=== PATIENT | female | born 1990 | race Caucasian/White ===

== ENCOUNTER → 2017-05-07 | Outpatient (CLI) | payer MEDICAID ==
[~2017-05-07] MED LIST: CIPR500T78 PO; NAPR-243 PO
--- NOTE | 2017-05-07 17:55 | Diagnostic Imaging Report ---
INDICATION: Left hip pain AP and oblique views of the left hip are obtained. No fracture or acute bony abnormality is seen. Joint spaces are unremarkable. IMPRESSION: Negative left hip. Dictated by: Dictated on workstation # [id number]
== END ==
LOC: RAD 17:22
PROVIDERS: ATTEND Nurse Practitioner Family
DX: M25.552 Pain in left hip (principal)
CPT/HCPCS: 73502

== ENCOUNTER 2020-12-20 08:10 | Emergency (ER) | payer SELFPAY ==
[~2020-12-20] VITALS: Ht 165 cm; Wt 170.0 kg
[2020-12-20 08:50] LABS: BILIRUBIN,URINE NEGATIVE (NEGATIVE); CLARITY,URINE CLOUDY; COLOR,URINE YELLOW; GLUCOSE, URINE (UA) NEGATIVE (NEGATIVE); KETONES,URINE TRACE (NEGATIVE); LEUKOCYTE ESTERASE ,URINE NEGATIVE (NEGATIVE); NITRITE,URINE NEGATIVE (NEGATIVE); PROTEIN,URINE NEGATIVE (NEGATIVE)
[2020-12-20 08:58] LABS: BACTERIA,URINE LARGE /HPF; RBC,URINE RARE /HPF; SQUAMOUS EPITHELIAL CELL,UR 25-50 /HPF; WBC,URINE RARE /HPF
[2020-12-20 09:25] LABS: BASOPHILS % (AUTO) 0 % (0-10); EOSINOPHILS # (AUTO) 0.1 10^3/uL (0.0-0.3); EOSINOPHILS % (AUTO) 1 % (0-10); HEMATOCRIT 45 % (35-52); HEMOGLOBIN 14.1 g/dL (11.5-16.0); LYMPHOCYTES # (AUTO) 2.3 10^3/uL (1.0-4.0); LYMPHOCYTES % (AUTO) 25 % (12-44); MEAN CORPUSCULAR HEMOGLOBIN 31 pg (25-34); MEAN CORPUSCULAR HGB CONC 31 g/dL (32-36); MEAN CORPUSCULAR VOLUME 100 fL (80-99); MEAN PLATELET VOLUME 10.3 fL (9.0-12.2); MONOCYTES # (AUTO) 0.5 10^3/uL (0.0-1.0); MONOCYTES % (AUTO) 5 % (0-12); NEUTROPHILS # (AUTO) 6.2 10^3/uL (1.8-7.8); NEUTROPHILS % (AUTO) 67 % (42-75); PLATELET COUNT 182 10^3/uL (130-400); WHITE BLOOD COUNT 9.2 10^3/uL (4.3-11.0)
--- NOTE | 2020-12-20 09:55 | Diagnostic Imaging Report ---
IndicATION: Left-sided pelvic pain. Patient is 10 weeks . There is a single live IUP measuring approximately 10 weeks 1 day gestation. heart rate was recorded at 176 bpm. No mark-gestational sac hemorrhage is detected. Ovaries could not be visualized. No adnexal mass or free fluid is detected. IMPRESSION: Single live IUP, 10 weeks 1 day gestational age. Estimated date of confinement sonographically is 07/17/2021. Dictated by: Dictated on workstation # [id number]
--- NOTE | 2020-12-20 10:13 | ED GU-Female ---
General Chief Complaint: Abdominal/GI Problems Stated Complaint: PELVIC PAIN- 10 WEEKS Nursing Triage Note: ARRIVED VIA AMB TO ROOM 06. STATES SHE STRTED HAVING SOME LEFT SIDED STABBING PAIN STARTING AT 0330. PT STATES SHE IS 10 WEEKS GESTATION. Source: patient Exam Limitations: no limitations History of Present Illness Date Seen by Provider: Dec 20, 2020 Time Seen by Provider: 08:20 Allergies and Home Medications Allergies Coded Allergies: sulfamethoxazole (Verified Allergy, Unknown, 12/12/07) trimethoprim (Verified Allergy, Unknown, 12/12/07) Home Medications Ciprofloxacin HCl 500 Mg Tablet, 500 MG PO BID Prescribed by: STEPHEN NUNEZ on 07/11/14 2310 Review of Systems Review of Systems Expected Date of Delivery: Jul 17, 2021 Past Mrjgqts-Uqpjhv-Bcfrhw Hx Patient Social History Smoking Status: Current Someday Smoker Substance use?: No Immunizations Up To Date Tetanus Booster (TDap): Less than 5yrs Second COVID19 Vaccination Rodrigue: July COVID19 Vaccine 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 Seasonal Allergies Seasonal Allergies: Yes Past Medical History Adenoidectomy, Section, Tonsillectomy Asthma Expected Date of Delivery: Jul 17, 2021 Reproductive Disorders: 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 oz. 154.331238ns; 62.00 BMI Method:Stated Progress/Results/Core Measures Suspected Sepsis SIRS Temperature: Pulse: 86 Respiratory Rate: 16 Laboratory Tests 12/20/20 09:17: White Blood Count 9.2 Blood Pressure 147 /96 Mean: 113 Laboratory Tests 12/20/20 09:17: Platelet Count 182 Results/Orders Lab Results Laboratory Tests Test 12/20/20 08:31 12/20/20 09:17 Range/Units Urine Color YELLOW Urine Clarity CLOUDY Urine pH 6.0 5-9 Urine Specific [place] >=1.030 1.016-1.022 Urine Protein NEGATIVE NEGATIVE Urine Glucose (UA) NEGATIVE NEGATIVE Urine Ketones TRACE H NEGATIVE Urine Nitrite NEGATIVE NEGATIVE Urine Bilirubin NEGATIVE NEGATIVE Urine Urobilinogen 0.2 < = 1.0 MG/DL Urine Leukocyte Esterase NEGATIVE NEGATIVE Urine RBC (Auto) 1+ H NEGATIVE Urine RBC RARE /HPF Urine WBC RARE /HPF Urine Squamous Epithelial Cells 25-50 H /HPF Urine Crystals NONE /LPF Urine Bacteria LARGE H /HPF Urine Casts NONE /LPF Urine Mucus NEGATIVE /LPF Urine Culture Indicated NO White Blood Count 9.2 4.3-11.0 10^3/uL Red Blood Count 4.52 3.80-5.11 10^6/uL Hemoglobin 14.1 11.5-16.0 g/dL Hematocrit 45 35-52 % Mean Corpuscular Volume 100 H 80-99 fL Mean Corpuscular Hemoglobin 31 25-34 pg Mean Corpuscular Hemoglobin Concent 31 L 32-36 g/dL Red Cell Distribution Width 12.1 10.0-14.5 % Platelet Count 182 130-400 10^3/uL Mean Platelet Volume 10.3 9.0-12.2 fL Immature Granulocyte % (Auto) 0 % Neutrophils (%) (Auto) 67 42-75 % Lymphocytes (%) (Auto) 25 12-44 % Monocytes (%) (Auto) 5 0-12 % Eosinophils (%) (Auto) 1 0-10 % Basophils (%) (Auto) 0 0-10 % Neutrophils # (Auto) 6.2 1.8-7.8 10^3/uL Lymphocytes # (Auto) 2.3 1.0-4.0 10^3/uL Monocytes # (Auto) 0.5 0.0-1.0 10^3/uL Eosinophils # (Auto) 0.1 0.0-0.3 10^3/uL Basophils # (Auto) 0.0 0.0-0.1 10^3/uL Immature Granulocyte # (Auto) 0.0 0.0-0.1 10^3/uL Human Chorionic Gonadotropin, Quant [id number] H <5 MIU/ML My Orders Orders - CLOVIS SANTIAGO MD Cbc With Automated Diff (12/20/20 08:39) Hcg,Quantitative (12/20/20 08:39) Ua Culture If Indicated (12/20/20 08:39) Urine Bedside (12/20/20 08:39) Us Ob Transvaginal [id number] (12/20/20 08:47) Vital Signs/I&O 12/20/20 08:20 Temp 36.0 Pulse 86 Resp 16 B/P (MAP) 147/96 (113) Pulse Ox 99 O2 Delivery Room Air Capillary Refill : Less Than 3 Seconds Blood Pressure Mean: 113 Departure Impression Primary Impression: Pelvic pain affecting Qualified Codes: O26.891 - Other specified related conditions, first trimester; R10.2 - Pelvic and perineal pain Disposition: 01 HOME, SELF-CARE Condition: Improved Departure-Patient Inst. Decision time for Depature: 10:11 Referrals: VERONIKA LÓPEZ MD (PCP/Family) Primary Care Physician Patient Instructions: Pelvic Pain Add. Discharge Instructions: Your work-up is unremarkable. You have a normal in the uterus at about 10 weeks gestational age. Keep your follow-up appointment on January 01. Take a vitamin and drink plenty of clear liquids. Eating small quantities of healthy food frequently throughout the day tends to help reduce nausea and vomiting. Call with questions or concerns. Return to the ER if you have worsening symptoms. All discharge instructions reviewed with patient and/or family. Voiced understanding. Copy Copies To 1: VERONIKA LÓPEZ MD, JOSHUA T MD Dec 20, 2020 10:13
[2020-12-20 10:18] VITALS: BP 147/96
== END 2020-12-20 10:17 | disposition home or self-care (01) ==
LOC: EDUNIT# 08:10 → ER 08:11
DX: O26.891 Other specified pregnancy related conditions, first trimester (principal); R10.2 Pelvic and perineal pain; O99.511 Diseases of the respiratory system complicating pregnancy, first trimester; J45.909 Unspecified asthma, uncomplicated; O99.331 Smoking (tobacco) complicating pregnancy, first trimester; F17.200 Nicotine dependence, unspecified, uncomplicated; Z3A.10 10 weeks gestation of pregnancy
CPT/HCPCS: 36415; 76817; 81000; 84702; 84703; 85025

== ENCOUNTER 2021-02-22 14:30 | Emergency (ER) | payer SELFPAY ==
[~2021-02-22] VITALS: Ht 167 cm; Wt 172.0 kg
--- NOTE | 2021-02-22 15:28 | ED Cough/URI ---
General Chief Complaint: Respiratory Problems Stated Complaint: COUGH/SOA/CONGESTION 19 WKS PREG Nursing Triage Note: PT ARRIVES AMBULATORY TO ER WITH C/O SHORTNESS OF BREATH SINCE YESTERDAY. [facility] HAS POSSIBLY BEEN AROUND SICK PEOPLE BUT NO ONE SHE KNOWS FOR SURE. PT SAID SON IS HAVING SAME SYMPTOMS AND WAS TESTED FOR COVID YESERDAY AND WAS NEGATIVE. Source: patient Exam Limitations: no limitations History of Present Illness Date Seen by Provider: Feb 22, 2021 Time Seen by Provider: 15:15 Initial Comments Patient is a 30-year-old female who presents to the emergency department today with a chief complaint of feeling shortness of breath and having upper respiratory congestion and a little cough. Patient states her symptoms started yesterday. She states that her son has sent the same symptoms and was tested for Covid and was negative yesterday. Her daughter was exposed to someone directly with Covid last week but she has not developed any symptoms. Sonia is Covid vaccinated having completed the vaccination in July of this year. She denies fevers or chills. She has had some ear fullness. No sore throat. No diarrhea, no black or bloody stools. No loss of taste or smell. No urine difficulties. No abnormal vaginal discharge. She is approximately [address] López for care. She states she has been fighting nausea and vomiting throughout the duration of her so far. She has not taken any medications to try and alleviate her congestion or shortness of breath. She states that she has a pulse ox at home and that it was reading about 89-90 91 with activity at home. Currently on room air at rest the patient is 99% with no evidence of respiratory distress/increased work of breathing. All other review of systems reviewed and negative except as stated Timing/Duration: yesterday Severity/Quality: mild, dry cough Prior Episodes/Possible Cause: illness exposure (son) Associated Symptoms: cough, shortness of breath Allergies and Home Medications Allergies Coded Allergies: sulfamethoxazole (Verified Allergy, Unknown, 12/12/07) trimethoprim (Verified Allergy, Unknown, 12/12/07) Patient Home Medication List Home Medication List Reviewed: Yes Ciprofloxacin HCl (Cipro) 500 Mg Tablet, 500 MG PO BID Prescribed by: STEPHEN NUNEZ on 07/11/14 4268 Review of Systems Review of Systems Constitutional: see HPI EENTM: ear pain (ear fullness) Respiratory: cough, dyspnea on exertion Cardiovascular: no symptoms reported Gastrointestinal: no symptoms reported Genitourinary: no symptoms reported : Yes Expected Date of Delivery: Jul 17, 2021 Musculoskeletal: no symptoms reported Skin: no symptoms reported All Other Systems Reviewed Negative Unless Noted: Yes Past Wtinalk-Xdydic-Ngzlhc Hx Patient Social History Tobacco Use?: No Substance use?: No Alcohol Use?: No Immunizations Up To Date Tetanus Booster (TDap): Less than 5yrs Influenza Vaccine Up-to-Date: No; Not Current First/Initial COVID19 Vaccinat: JUNE 2020 Second COVID19 Vaccination Rodriuge: July COVID19 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: [facility] Seasonal Allergies Seasonal Allergies: Yes Past Medical History Surgeries: Yes Adenoidectomy, Section, Ear Surgery, Tonsillectomy Respiratory: Yes Asthma Cardiac: No Neurological: No Expected Date of Delivery: Jul 17, 2021 Last Menstrual Period: Oct 24, 2020 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 oz. 154.827039um; 61.00 BMI Method:Stated General Appearance: WD/WN, no apparent distress Eyes: Bilateral Eye Normal Inspection, Bilateral Eye PERRL, Bilateral Eye EOMI HEENT: PERRL/EOMI, TMs normal, pharynx normal Respiratory: lungs clear, normal breath sounds, no respiratory distress, no accessory muscle use Cardiovascular: regular rate, rhythm Gastrointestinal: non tender, soft, other (morbid obesity) Extremities: normal range of motion, normal inspection Neurologic/Psychiatric: alert, normal mood/affect, oriented x 3 Skin: normal color, warm/dry Progress/Results/Core Measures Suspected Sepsis SIRS Temperature: Pulse: 96 Respiratory Rate: 20 Blood Pressure 156 /89 Mean: 111 Results/Orders Lab Results Laboratory Tests Test 02/22/21 15:08 Range/Units SARS-CoV-2 RNA (RT-PCR) Not Detected Not Detecte Vital Signs/I&O 02/22/21 02/22/21 14:40 16:18 Temp 36.6 36.6 Pulse 96 90 Resp 20 20 B/P (MAP) 156/89 (111) 166/100 Capillary Refill : Blood Pressure Mean: 111 Progress Note : Time: 16:08 Progress Note Patient's Covid test is negative. She is not tachycardic, not hypoxic, not tachypneic. She has even and unlabored respirations. No focal signs of infection are found. No suspicion for pulmonary embolism or other acute pathology related to the lungs. She is approximately 19 weeks , I have encouraged fluids and told her that she can take zyks-gph-dfsyhdl Robitussin and Sudafed as needed for congestion and cough. She verbalized understanding, all questions were sought and answered. Patient is stable for discharge. Departure Impression Primary Impression: Upper respiratory infection Qualified Codes: J06.9 - Acute upper respiratory infection, unspecified Additional Impression: Second trimester Disposition: 01 HOME, SELF-CARE Condition: Stable Departure-Patient Inst. Decision time for Depature: 16:07 Referrals: VERONIKA LÓPEZ MD (PCP/Family) Primary Care Physician Patient Instructions: Viral Upper Respiratory Infection, Adult (DC) Add. Discharge Instructions: Keep your scheduled follow-ups with your primary care provider. You can take tnpa-ofw-vbyhjgy Sudafed and Robitussin for congestion and cough. Make sure you are drinking plenty of fluids to stay well-hydrated. If you develop high fevers, worsening shortness of breath and cough or any other emergent concerning symptoms please do not hesitate to come back to the emergency department for reevaluation. Copy Copies To 1: VERONIKA LÓPEZ MD, KATHRYN M MD Feb 22, 2021 15:28
[2021-02-22 16:18] VITALS: BP 166/100
== END 2021-02-22 16:19 | disposition home or self-care (01) ==
LOC: EDUNIT# 14:30 → ER 14:32
DX: O99.512 Diseases of the respiratory system complicating pregnancy, second trimester (principal); J06.9 Acute upper respiratory infection, unspecified; J45.909 Unspecified asthma, uncomplicated; Z3A.19 19 weeks gestation of pregnancy; Z20.822 Contact with and (suspected) exposure to COVID-19
CPT/HCPCS: 87636; 99283

== ENCOUNTER 2021-07-04 05:33 | Outpatient (CLI) | payer MEDICAID ==
[~2021-07-04] VITALS: Ht 167 cm; Wt 172.3 kg
[2021-07-04] MEDS ORDERED: PREN1TAB79 PO (13:57)
== END 2021-07-04 14:04 ==
LOC: PREOP 05:33
PROVIDERS: ATTEND Obstetrics & Gynecology
DX: Z01.818 Encounter for other preprocedural examination (principal)

== ENCOUNTER 2021-07-11 05:54 | Inpatient (IN) | payer MEDICAID ==
[~2021-07-11] VITALS: Ht 165 cm; Wt 174.0 kg
[2021-07-11] VITALS (9 sets, daily range): BP systolic 99–140; BP diastolic 51–89
[~2021-07-11 05:54] MED LIST changes: +PREN1TAB79 PO
[2021-07-11] MEDS ORDERED: CATHETER FLUSH 10 ML SYR IV PRN (06:00)
[2021-07-11] MEDS ORDERED: ceFAZolin 2 GM IV Premixed 50 ML IV ONE (06:00)
[2021-07-11] MEDS ORDERED: METOCLOPRAMIDE INJ 10 MG/2 ML (REGLAN) IV ONE (06:00)
[2021-07-11] MEDS ORDERED: LACTATED RINGERS 1,000 ML IV PRN (06:00)
[2021-07-11] MEDS ORDERED: CITRIC ACID/SOB CIT (BICITRA) 30 ML UDC PO ONE (06:00)
[2021-07-11] MEDS ORDERED: FAMOTIDINE 20MG/2ML IV (PEPCID) IV ONE (06:00)
[2021-07-11] MEDS: LACTATED RINGERS 1,000 ML IV PRN ×3 (06:26→07:50)
[2021-07-11 06:45] LABS: BASOPHILS % (AUTO) 0 % (0-10); EOSINOPHILS # (AUTO) 0.5 10^3/uL (0.0-0.3); EOSINOPHILS % (AUTO) 3 % (0-10); HEMATOCRIT 36 % (35-52); HEMOGLOBIN 11.8 g/dL (11.5-16.0); LYMPHOCYTES # (AUTO) 2.6 10^3/uL (1.0-4.0); LYMPHOCYTES % (AUTO) 20 % (12-44); MEAN CORPUSCULAR HEMOGLOBIN 31 pg (25-34); MEAN CORPUSCULAR HGB CONC 33 g/dL (32-36); MEAN CORPUSCULAR VOLUME 94 fL (80-99); MEAN PLATELET VOLUME 9.7 fL (9.0-12.2); MONOCYTES # (AUTO) 0.6 10^3/uL (0.0-1.0); MONOCYTES % (AUTO) 5 % (0-12); NEUTROPHILS # (AUTO) 9.4 10^3/uL (1.8-7.8); NEUTROPHILS % (AUTO) 71 % (42-75); PLATELET COUNT 222 10^3/uL (130-400); WHITE BLOOD COUNT 13.3 10^3/uL (4.3-11.0)
[2021-07-11] MEDS ORDERED: fentaNYL INJ 100 MCG/2 ML AMP ONE (07:09)
[2021-07-11] MEDS ORDERED: KETAMINE 50 MG/5 ML SYRINGE ONE (07:09)
--- NOTE | 2021-07-11 07:15 | Progress Note-Pre Operative ---
Pre-Operative Progress Note H&P Reviewed The H&P was reviewed, patient examined and no changes noted. Date Seen by Provider: Jul 11, 2021 Time Seen by Provider: 07:05 Date H&P Reviewed: Jul 10, 2021 Time H&P Reviewed: 17:00 Pre-Operative Diagnosis: Previous section. ЕКАТЕРИНА ANDERS DO Jul 11, 2021 07:14
[2021-07-11] MEDS ORDERED: OXYTOCIN PRE-MIX DRIP 500 ML IV ONE ×3 (07:48→08:49)
[2021-07-11] MEDS: KETOROLAC 30 MG/ML VIAL IV SCH ×3 (07:55→20:21)
[2021-07-11] MEDS ORDERED: KETOROLAC 30 MG/ML VIAL ONE (08:13)
[2021-07-11] MEDS ORDERED: NALOXONE 0.4 MG/ML 1 ML (NARCAN) VIAL IV PRN (08:45)
[2021-07-11] MEDS ORDERED: MEASLES,MUMPS,RUBELLA 1 EA INJ SC SCH (08:45)
[2021-07-11] MEDS ORDERED: morphine INJ 4 MG/ML 1 ML (VIAL/SYRINGE) IV PRN (08:45)
[2021-07-11] MEDS ORDERED: OXYTOCIN PRE-MIX DRIP 500 ML IV SCH (08:45)
[2021-07-11] MEDS ORDERED: TETANUS,DIPTH,PERTUSS P/F (BOOSTRIX) 0.5 ML VIAL IM SCH (08:45)
--- NOTE | 2021-07-11 08:57 | Cesarean Section Operative ---
Procedure Procedure Note Pre-operative Diagnosis: Sonia Diego is a 30 /Para 3 /2 ,Gestational Age 39 1/7 with history of previous section x 2, BMI 64 Post-operative Diagnosis: same, 30 /Para 3 /2 ,Gestational Age 39 1/7 with history of previous section x 2, BMI 64, breech/transverse (unstable lie) Procedure: Repeat low transverse section, Physician: ЕКАТЕРИНА ANDERS Tube Depatcher: Harinder Breaux MD department assistant required for retraction of important neurovascular structures and abdominal wall retraction Estimated blood loss: 600 mL Disposition: stable Findings: Viable female , Apgars 8/9, weight 5#1 ounce, intact placenta, 3vc, normal appearing uterus, tubes, and ovaries. Indications:Sonia Diego is a 30 /Para 3 /2 ,Gestational Age 39 1/7 with history of previous section x 2, BMI, breech/transverse (unstable lie), Procedure Details: The patient was seen in pre-op and the procedure was discussed with the patient in full, including the risks, benefits, and alternatives. All questions were answered. The patient was taken to the operating room and a time out was p erformed, verifying patient and procedure. After spinal anesthesia was placed by our anesthesia colleagues, the patient was placed in the dorsal supine with leftward tilt for uterine displacement.~ Her abdomen was then prepped and draped in the typical sterile fashion. A Pfannenstiel skin incision was made using a scalpel and carried down through the underlying fascia through the previous incision. The fascia was incised in the midline and tented up using Kelly clamps. On both the inferior and superior fas ivelisse side the rectus muscle was dissected off bluntly and sharply using Rosas scissors. The rectus muscles were in the midline and there was preperitoneal fat protruding through. The peritoneum was never identified, as when I the muscles and retracted the preperitoneal, I was directly in the peritoneal cavity. The muscles were then stretched laterally using manual strength. After entering the abdominal cavity and confirming lack of intraperitoneal adhesions, an extra large Gage retractor was placed and the lower uterine segment was visualized. the fetus was noted to be transverse.~ A scalpel was utilized to make a low transverse uterine incision. Amniotomy was performed with an Allis clamp with return of clear fluid. The left hip/side was presenting. The infant was then rotated to complete breech and the left foot was then delivered. I then delivered the right foot and then gently delivered the infant up to the level of the scapulae. The arms were then swept across the chest and delivered. The head was then delivered with assistance of the Oqayiych-Wlvdawl-Uqax maneuver and the infant was delivered without difficulty. Mouth and nares were suctioned with bulb suction. There was a nuchal cord x 1 that was then reduced. After the umbilical cord was clamped and cut, the infant was handed off to the pediatric staff. A sample of cord blood was then obtained. The placenta was delivered intact via uterine massage. The uterus was cleared of all clots and debris. The uterine incision was closed using 0 Vicryl in a running locked fashion. A second imbricated layer was placed using 0 Vicryl in a running fashion as well. The incision was reinforced with figure of eight stitches of 3-0 Vicryl. The hysterotomy site was examined and hemostasis was observed. The bilateral tubes and ovaries appeared normal. The abdominal gutters were cleared of all clots and debris. A final check of the uterine incision showed it to be hemostatic. The peritoneum was closed using 3-0 Vicryl in a running fashion. The fascia was closed with 0 PDS in a running fashion. The subcutaneous space was hemostatic. The subcutaneous space was closed with 3-0 Plain in several single interrupted stitches. The skin was then closed using 4-0 Biosyn in a running subcuticular fashion. The skin edges were reapproximated together and were hemostatic. Skinaffix was placed over the incision. An island dressing was applied. All sponge, lap and needle counts were correct at the end of the procedure per nursing. Vitals - Labs Vital Signs - I&O Vital Signs Date Time Temp Pulse Resp B/P (MAP) Pulse Ox O2 Delivery O2 Flow Rate FiO2 07/11/21 06:47 36.4 96 18 98 Room Air Labs Laboratory Tests 07/11/21 06:37: White Blood Count 13.3H, Red Blood Count 3.87, Hemoglobin 11.8, Hematocrit 36, Mean Corpuscular Volume 94, Mean Corpuscular Hemoglobin 31, Mean Corpuscular Hemoglobin Concent 33, Red Cell Distribution Width 14.6H, Platelet Count 222, Mean Platelet Volume 9.7, Immature Granulocyte % (Auto) 1, Neutrophils (%) (Auto) 71, Lymphocytes (%) (Auto) 20, Monocytes (%) (Auto) 5, Eosinophils (%) (Auto) 3, Basophils (%) (Auto) 0, Neutrophils # (Auto) 9.4H, Lymphocytes # (Auto) 2.6, Monocytes # (Auto) 0.6, Eosinophils # (Auto) 0.5H, Basophils # (Auto) 0.0, Immature Granulocyte # (Auto) 0.1 ЕКАТЕРИНА ANDERS DO Jul 11, 2021 08:57
[2021-07-11 10:31] LABS: BILIRUBIN,URINE NEGATIVE (NEGATIVE); CLARITY,URINE CLEAR; COLOR,URINE DARK YELLOW; GLUCOSE, URINE (UA) NEGATIVE (NEGATIVE); KETONES,URINE NEGATIVE (NEGATIVE); LEUKOCYTE ESTERASE ,URINE NEGATIVE (NEGATIVE); NITRITE,URINE NEGATIVE (NEGATIVE); PROTEIN,URINE NEGATIVE (NEGATIVE)
[2021-07-11 10:47] LABS: BACTERIA,URINE TRACE /HPF
[2021-07-11] MEDS ORDERED: ACETAMINOPHEN 500 MG TAB (TYLENOL) ONE (11:00)
[2021-07-11] MEDS: DOCUSATE SODIUM 100 MG (COLACE) CAP PO SCH ×2 (11:02→20:20)
[2021-07-11] MEDS: ACETAMINOPHEN 500 MG TAB (TYLENOL) PO SCH ×2 (11:03→19:08)
[2021-07-11] MEDS ORDERED: CATHETER FLUSH 10 ML SYR IV SCH (14:00)
[2021-07-11] MEDS ORDERED: DOCU100C37 PO (19:19)
[2021-07-11] MEDS ORDERED: FERR325T24 PO (19:19)
[2021-07-11] MEDS ORDERED: IBUP-844 PO (19:19)
[2021-07-11] MEDS ORDERED: ACET-93 PO (19:19)
--- NOTE | 2021-07-11 19:22 | Discharge Inst-Women's Service ---
Discharge Inst-Women's Serv Depart Medication/Instructions New, Converted or Re-Newed RX: Transmitted to Pharmacy (24 oxycodone sent from office) Final Diagnosis 39 week gestation previous section Problems Reviewed?: Yes Consults/Follow Up Additional Follow Up: Yes Orders/Referrals abdominal binder sent to [facility] Activity Activity: Activity as Tolerated Driving Instructions: No Driving for 1 Week NO SMOKING: NO SMOKING Nothing Inside Vagina: No Douching, No [place], No Tampons Diet Discharge Diet: No Restrictions Symptoms to Report to : Bleeding Excessive, Pain Increased, Fever Over 101 Degrees F, Vaginal Bleeding Increase, Cramps in Feet or Legs, Vaginal Discharge Foul For Any Problems or Questions: Contact Your Physician Skin/Wound Care Infection Signs and Symptoms: Increased Redness, Foul Odor of Wound, Increased Drainage, Skin Itchy or Has a Rash, Increased Swelling, Temperature Above 101 F Operative Area Clean and Dry: Keep Incision Clean/Dry Stitches/[place]/Dermabond: Dermabond Bathing Instructions: ЕКАТЕРИНА Rodriguez DO Jul 11, 2021 19:22
[2021-07-12 00:05] VITALS: BP 121/53
[2021-07-12] MEDS: KETOROLAC 30 MG/ML VIAL IV SCH (02:08)
[2021-07-12] MEDS: ACETAMINOPHEN 500 MG TAB (TYLENOL) PO SCH ×2 (03:29→14:05)
[2021-07-12 04:10] VITALS: BP 126/67
[2021-07-12 05:55] LABS: BASOPHILS % (AUTO) 0 % (0-10); EOSINOPHILS # (AUTO) 0.4 10^3/uL (0.0-0.3); EOSINOPHILS % (AUTO) 3 % (0-10); HEMATOCRIT 33 % (35-52); HEMOGLOBIN 10.8 g/dL (11.5-16.0); LYMPHOCYTES # (AUTO) 2.5 10^3/uL (1.0-4.0); LYMPHOCYTES % (AUTO) 18 % (12-44); MEAN CORPUSCULAR HEMOGLOBIN 31 pg (25-34); MEAN CORPUSCULAR HGB CONC 33 g/dL (32-36); MEAN CORPUSCULAR VOLUME 93 fL (80-99); MONOCYTES # (AUTO) 0.6 10^3/uL (0.0-1.0); MONOCYTES % (AUTO) 4 % (0-12); NEUTROPHILS # (AUTO) 10.1 10^3/uL (1.8-7.8); NEUTROPHILS % (AUTO) 74 % (42-75); PLATELET COUNT 194 10^3/uL (130-400); WHITE BLOOD COUNT 13.6 10^3/uL (4.3-11.0)
[2021-07-12] MEDS ORDERED: IBUPROFEN 600 MG (MOTRIN) TAB PO ONE (08:48)
[2021-07-12] MEDS: FERROUS SULF 325 MG (IRON) TAB PO SCH ×2 (08:51→20:12)
[2021-07-12] MEDS: IBUPROFEN 600 MG (MOTRIN) TAB PO SCH ×3 (08:51→21:02)
[2021-07-12] MEDS: DOCUSATE SODIUM 100 MG (COLACE) CAP PO SCH ×2 (08:51→21:02)
[2021-07-12 08:54] VITALS: BP 118/63
--- NOTE | 2021-07-12 09:38 | Postpartum Progress Note ---
Note Note Day # [1] Subjective: Patient is without complaints. Ambulating, voiding. Tolerating a regular diet without nausea or vomiting. Normal lochia. Pain is well controlled with oral pain medications. breast feeding. [] Objective: VSS, AF Physical Exam: General - Alert and oriented, no apparent distress Abdomen - Soft, appropriately tender to palpation, non-distended, fundus firm at umbilicus Inc - c/d/i Extremities - no edema, negative Anthony's bilaterally Assessment: [] post- day # [1], status post RLTCS Recovering well, hemodynamically stable Plan: Routine and postoperative care. Encourage breast feeding. Encourage ambulation. Ferrous sulfate supplementation. Plan for discharge [POD#3] Vitals - Labs Vital Signs - I&O Vital Signs Date Time Temp Pulse Resp B/P (MAP) Pulse Ox O2 Delivery O2 Flow Rate FiO2 07/12/21 08:54 36.3 93 20 118/63 (81) Room Air 07/12/21 04:10 36.6 86 18 126/67 (86) 96 Room Air 07/12/21 00:05 36.4 77 18 121/53 (75) 96 Room Air 07/11/21 20:21 36.5 98 18 125/60 (81) 96 Room Air 07/11/21 16:34 36.3 93 20 130/67 (88) 97 Room Air 07/11/21 11:59 36.4 84 18 140/89 (106) 96 Room Air 07/11/21 09:44 Room Air 07/11/21 09:43 35.9 18 128/74 (92) 99 Room Air I & O 07/12/21 07:00 Intake Total 5095 ml Output Total 500 ml Balance 4595 ml Labs Laboratory Tests 07/12/21 05:47: White Blood Count 13.6H, Red Blood Count 3.51L, Hemoglobin 10.8L, Hematocrit 33L , Mean Corpuscular Volume 93, Mean Corpuscular Hemoglobin 31, Mean Corpuscular Hemoglobin Concent 33, Red Cell Distribution Width 14.7H, Platelet Count 194, Mean Platelet Volume 10.0, Immature Granulocyte % (Auto) 1, Neutrophils (%) (Auto) 74, Lymphocytes (%) (Auto) 18, Monocytes (%) (Auto) 4, Eosinophils (%) (Auto) 3, Basophils (%) (Auto) 0, Neutrophils # (Auto) 10.1H, Lymphocytes # (Auto) 2.5, Monocytes # (Auto) 0.6, Eosinophils # (Auto) 0.4H, Basophils # (Auto) 0.0, Immature Granulocyte # (Auto) 0.1 Microbiology 07/11/21 MRSA Screen - Final, Complete MRSA not isolated PRINCESS CUI MD Jul 12, 2021 09:38
--- NOTE | 2021-07-12 16:31 | Anesthesia-Regional Post-Op ---
Regional Patient Condition Mental Status: Alert, Oriented x3 Circulation: Same as Pre-Op Headache: Absent Sensation: Full Recovery Motor Block: Absent Post Op Complications Complications None Follow Up Care/Instructions Patient Instructions None needed. Anesthesia/Patient Condition Patient is doing well, no complaints, stable vital signs, no apparent adverse anesthesia problems. No complications reported per nursing. KENNA CHIN CRNA Jul 12, 2021 16:31
[2021-07-12 18:20] VITALS: BP 126/71
[2021-07-13 00:20] VITALS: BP 127/60
[2021-07-13] MEDS: ACETAMINOPHEN 500 MG TAB (TYLENOL) PO SCH ×4 (00:21→16:51)
[2021-07-13] MEDS: IBUPROFEN 600 MG (MOTRIN) TAB PO SCH ×4 (02:47→21:23)
[2021-07-13 06:30] VITALS: BP 124/63
[2021-07-13 08:00] VITALS: BP 129/71
[2021-07-13] MEDS: DOCUSATE SODIUM 100 MG (COLACE) CAP PO SCH ×2 (08:09→21:23)
[2021-07-13] MEDS: FERROUS SULF 325 MG (IRON) TAB PO SCH (08:09)
[2021-07-13] MEDS ORDERED: FLU QUADRIvalent (3YOA+) 60 mcg/0.5 ml 2021-22(AFLURIA) IM ONE (08:45)
--- NOTE | 2021-07-13 11:20 | Progress Note ---
Standard Progress Note Progress Notes/Assess & Plan Date Seen by a Provider: Jul 13, 2021 Time Seen by a Provider: 10:30 Progress/Assessment & Plan Subjective Patient states pain is well controlled tolerating p.o. lochia is reduced. Working on breast-feeding. Continues to desire dismissal home tomorrow. Objective vital signs are stable patient is afebrile General alert and oriented x3 in no acute distress chest nonlabored Abdomen obese nontender odor consistent with yeast with slight erythema the left lower quadrant well above the level of the incision which is clean dry and intact Extremities nontender Assessment status post repeat low transverse section postop day 2 doing well Plan #1 continue routine postop and care with support 2. Will add nystatin powder to area of concern Anticipate dismissal home tomorrow with routine follow-up in the clinic PRINCESS CUI MD Jul 13, 2021 11:20
[2021-07-13 12:43] VITALS: BP 118/67
[2021-07-13] MEDS: MICONAZOLE 2% POWDER (DESENEX AF) 90 GM TOP SCH ×2 (12:50→21:30)
[2021-07-13 16:45] VITALS: BP 132/76
[2021-07-13 21:23] VITALS: BP 134/72
[2021-07-14] MEDS: ACETAMINOPHEN 500 MG TAB (TYLENOL) PO SCH ×2 (00:58→08:26)
[2021-07-14 04:05] VITALS: BP 128/70
[2021-07-14] MEDS: IBUPROFEN 600 MG (MOTRIN) TAB PO SCH ×2 (04:05→11:39)
[2021-07-14 07:25] VITALS: BP_SYST 125; BP_SYST 131; BP_DIAS 78; BP_DIAS 85
[2021-07-14] MEDS: FERROUS SULF 325 MG (IRON) TAB PO SCH (08:26)
[2021-07-14] MEDS: DOCUSATE SODIUM 100 MG (COLACE) CAP PO SCH (08:26)
--- NOTE | 2021-07-14 08:37 | Postpartum Progress Note ---
Post Op Post-operative Day #[3] Subjective: Patient is without complaints. Ambulating, voiding after hood removed. Tolerating a regular diet without nausea or vomiting. Normal lochia. Pain is well controlled with oral pain medications. Passing flatus. [breast and supplement] feeding. [] Objective: VSS AF Gen: obese, NAD Chest: nonlabored Abd: erythema superior left incision improving, odor persists. appropriate ecchymosis. Inc: c/d/it Ext: nt Assessment: [] post-operative day # [3], status post [RLTCS]. Recovering well, hemodynamically stable Plan: Routine post-operative care. Encourage breast feeding. Encourage ambulation. VTE prophylaxis: SCDs. Ferrous sulfate supplementation. Plan for discharge today instructions to keep incision area clean/dry again reviewed Vitals - Labs Vital Signs - I&O Vital Signs Date Time Temp Pulse Resp B/P (MAP) Pulse Ox O2 Delivery O2 Flow Rate FiO2 07/14/21 07:25 36.3 54 18 131/78 (95) Room Air 07/14/21 04:05 36.6 78 18 128/70 (89) 98 Room Air 07/13/21 21:23 36.6 88 18 134/72 (92) 98 Room Air 07/13/21 16:45 36.4 94 18 132/76 (94) 98 Room Air 07/13/21 12:43 36.3 84 18 118/67 (84) 96 Room Air Labs Microbiology 07/11/21 MRSA Screen - Final, Complete MRSA not isolated PRINCESS CUI MD Jul 14, 2021 08:37
--- NOTE | 2021-07-14 08:40 | Short Stay Summary ---
Discharge Summary Hospital Course Was the Problem List Reviewed?: Yes Final Diagnosis: s/p RLTCS, obesity complicating Hospital Course Date of Admission: Jul 11, 2021 at 05:54 Admission Diagnosis : Family Physician/Provider: Luis Breaux MD Date of Discharge: 07/14/21 Discharge Diagnosis: RLTCS, obesity Hospital Course: Patient was admitted for RLTCS. Procedure and course was uncomplicated. Patient was given topical antifungal powder for yeast and ins tructions reviewed on keeping area around incision clean and dry. Labs and Pending Lab Test: Microbiology 07/11/21 MRSA Screen - Final, Complete MRSA not isolated Home Meds Active Docusate Sodium 100 Mg Capsule 100 Mg PO BID Acetaminophen 500 Mg Tablet 1,000 Mg PO Q8HR Ibu (Ibuprofen) 600 Mg Tablet 600 Mg PO Q6HR Ferosul (Ferrous Sulfate) 325 Mg Tablet 325 Mg PO DAILY@0700 Reported Vitamins ( Vit W-Ca,Fe,FA(<1 mg)) 1 Each Tablet 1 Each PO PRN Assessment/Pt Instructions dismissed to home with routine postop and intructions Discharge Instructions Discharge Diet: No Restrictions Activity as Tolerated: Yes Discharge Physical Examination General Appearance: Alert HEENT: Atraumatic Respiratory: Normal Air Movement Abdominal: Soft Skin: Other Allergies: Coded Allergies: sulfamethoxazole (Verified Allergy, Unknown, 12/12/07) trimethoprim (Verified Allergy, Unknown, 12/12/07) Discharge Summary Date of Admission Jul 11, 2021 at 05:54 Date of Discharge Discharge Date: Jul 14, 2021 PRINCESS CUI MD Jul 14, 2021 08:40
[2021-07-14] MEDS ORDERED: MICO90PO TOP (08:41)
== END 2021-07-14 12:40 | disposition home or self-care (01) | DRG 788 ==
LOC: LDRP 05:54
PROVIDERS: ADMIT Obstetrics & Gynecology; ATTEND Obstetrics & Gynecology
PROC: 10D00Z1 Extraction of Products of Conception, Low, Open Approach (ICD-10-PCS; principal; 2021-07-11 07:20)
DX: O34.211 Maternal care for low transverse scar from previous cesarean delivery (principal); O64.1XX0 Obstructed labor due to breech presentation, not applicable or unspecified; Z37.0 Single live birth; O69.81X0 Labor and delivery complicated by cord around neck, without compression, not applicable or unspecified; O99.713 Diseases of the skin and subcutaneous tissue complicating pregnancy, third trimester; B37.2 Candidiasis of skin and nail; O99.214 Obesity complicating childbirth; E66.9 Obesity, unspecified; Z3A.39 39 weeks gestation of pregnancy; Z23 Encounter for immunization
CPT/HCPCS: 36415; 81000; 85025; 86850; 86900; 86901; 87081

== ENCOUNTER → 2022-07-20 | Outpatient (CLI) | payer MEDICAID ==
[~2022-07-20] MED LIST changes: +ACET-93 PO; +DOCU100C37 PO; +FERR325T24 PO; +IBUP-844 PO; +MICO90PO TOP
--- NOTE | 2022-07-21 15:53 | Diagnostic Imaging Report ---
INDICATION: Routine care. TECHNIQUE: Multiple real-time grayscale images were obtained over the gravid uterus. COMPARISON: None FINDINGS: Study is significantly compromised due to maternal large body habitus. In particular, survey is markedly compromised with inability to accurately assess the head, spine, stomach as well as the cardiac outflow tracts. kidneys and bladder are unremarkable. There does appear to be a four-chamber heart. There appears to be a normal cord insertion. Fetus is in a variable presentation. The heart rate was recorded at 149 bpm. Placenta is posterior. Amniotic fluid volume is normal. Cervical length is 5.8 cm. Biometrical measurements are as follows: Biparietal N/A cm, age N/A weeks N/A days. Head circumference N/A cm, age N/A weeks N/A days. Abdominal circumference 14.63 cm, age 20 weeks 0 days. Femur length 3.14 cm, age 19 weeks 6 days. Sonographic estimate age: 20 weeks 0 days. Sonographic estimated date of delivery: 12/07/2022. Estimated Weight: N/A gm (+/- N/A gm). LMP percentile: N/A%. heart rate: 149 beats per minute. number: 1 of 1. IMPRESSION: Limited study due to maternal body habitus. Fetus measures approximately 20 weeks gestational age with estimated date of confinement sonographically of 12/07/2022. survey was limited. Dictated by: Dictated on workstation # [id number]
== END ==
LOC: RAD 06-29 09:13
PROVIDERS: ATTEND Nurse Practitioner Women's Health
DX: Z34.02 Encounter for supervision of normal first pregnancy, second trimester (principal); Z3A.20 20 weeks gestation of pregnancy
CPT/HCPCS: 76805

== ENCOUNTER 2022-09-09 10:31 | Emergency (ER) | payer MEDICAID ==
[~2022-09-09] VITALS: Ht 169 cm; Wt 188.0 kg
--- NOTE | 2022-09-09 10:51 | ED Respiratory ---
General Chief Complaint: Respiratory Problems Stated Complaint: SOB | CHEST CONGESTION | COUGH Nursing Triage Note: PT STATES COUGH AND CONGESTION THAT STARTED LAST NIGHT, SOB AFTER WALKING TO RM 10, 27 WEEKS Source: patient Exam Limitations: no limitations History of Present Illness Date Seen by Provider: September 09, 2022 Time Seen by Provider: 10:42 Initial Comments 31-year-old female who is 27 weeks presents to the emergency department for shortness of breath. Symptoms started last night. She has had a productive cough with minimal sputum. No chest pain. No unilateral lower extremity pain or swelling though she does have bilateral swelling with her . No calf tenderness. No history of DVT, PE. No fevers or chills. All other systems reviewed and negative except documented per HPI. Voice recognition software was used to help create this chart Allergies and Home Medications Allergies Coded Allergies: sulfamethoxazole (Verified Allergy, Unknown, 12/12/07) trimethoprim (Verified Allergy, Unknown, 12/12/07) Patient Home Medication List Home Medication List Reviewed: Yes Acetaminophen (Acetaminophen) 500 Mg Tablet, 1,000 MG PO Q8HR Prescribed by: ЕКАТЕРИНА ANDERS on 07/11/211918 Docusate Sodium (Docusate Sodium) 100 Mg Capsule, 100 MG PO BID Prescribed by: ЕКАТЕРИНА ANDERS on 07/11/211918 Ferrous Sulfate (Ferosul) 325 Mg Tablet, 325 MG PO DAILY@0700 Prescribed by: ЕКАТЕРИНА ANDERS on 07/11/211918 Ibuprofen (Ibu) 600 Mg Tablet, 600 MG PO Q6HR Prescribed by: ЕКАТЕРИНА ANDERS on 07/11/211918 Miconazole Nitrate (Lotrimin AF) 90 Gm Powder, 1 GM TOP BID PRN for RASH Prescribed by: KAUR BEATTY on 07/14/21 1108 Vit W-Ca,Fe,FA(<1 mg) ( Vitamins) 1 Each Tablet, 1 EACH PO PRN, (Reported) Entered as Reported by: EAN CANELA on 07/04/21 1357 Review of Systems Review of Systems Constitutional: see HPI Expected Date of Delivery: Dec 08, 2022 Past Hrdafnm-Jpzles-Bwiafb Hx Patient Social History Tobacco Use?: Yes Smoking Status: Current Someday Smoker Substance use?: No Alcohol Use?: No Immunizations Up To Date Tetanus Booster (TDap): Less than 5yrs First/Initial COVID19 Vaccinat: JUNE 2020 Second COVID19 Vaccination Rodrigue: July Third COVID19 Vaccination Date: JUNE 2020 Seasonal Allergies Seasonal Allergies: Yes (NO INHALER USE) Past Medical History Surgery/Hospitalization HX: ASTHMA, C SECTIOINS, TONSILS Surgeries: Yes (C/SX2) Adenoidectomy, Section, Ear Surgery, Tonsillectomy Respiratory: No Asthma Cardiac: No Neurological: No Expected Date of Delivery: Dec 08, 2022 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 Sexually Transmitted Disease: Yes (HX CHLAMYDIA, PT HAS HPV) Genitourinary: Yes Kidney Infection, UTI-Chronic Gastrointestinal: No Musculoskeletal: No Endocrine: No HEENT: No Tonsilitis Loss of Vision: Denies Hearing Impairment: Denies Cancer: No Psychosocial: Yes ADD/ADHD, Anxiety, Bipolar, Depression Integumentary: No Blood Disorders: No Adverse Reaction/Blood Tranf: No Family Medical History No Pertinent Family Hx Physical Exam Vital Signs - First Documented 09/09/22 10:41 Temp 36.8 Pulse 109 Resp 22 B/P (MAP) 153/88 (109) Pulse Ox 96 O2 Delivery Room Air Capillary Refill : Less Than 3 Seconds Height: 5'6" Weight: 340lbs. oz. 154.827323zy; 65.00 BMI Method:Stated General Appearance: WD/WN, no apparent distress HEENT: normal ENT inspection, pharynx normal Neck: non-tender, supple, normal inspection Respiratory: chest non-tender, no respiratory distress, no accessory muscle use, other (Slight expiratory wheezing bilaterally) Cardiovascular: no murmur, tachycardia Gastrointestinal: normal bowel sounds, non tender, soft Neurologic/Psychiatric: alert, oriented x 3 Skin: normal color, warm/dry Progress/Results/Core Measures Suspected Sepsis SIRS Temperature: Pulse: 109 Respiratory Rate: 22 Blood Pressure 153 /88 Mean: 109 Results/Orders My Orders Orders - FABY DA SILVA DO Chest Pa/Lat (2 View) (09/09/22 10:49) Vital Signs/I&O 09/09/22 10:41 Temp 36.8 Pulse 109 Resp 22 B/P (MAP) 153/88 (109) Pulse Ox 96 O2 Delivery Room Air Capillary Refill : Less Than 3 Seconds Blood Pressure Mean: 109 Departure Communication (Admissions) Patient is hemodynamically stable. She is not hypoxic. She is in no respiratory distress. Chest x-ray shows likely patchy infiltrates bilaterally. Treated with antibiotics given that she is . Advise close follow-up and strict return precautions. Impression Primary Impression: CAP (community acquired pneumonia) Qualified Codes: J18.9 - Pneumonia, unspecified organism Disposition: HOME, SELF-CARE Condition: Stable Departure-Patient Inst. Referrals: ORLANDO WELLS DO (PCP/Family) Primary Care Physician Patient Instructions: Pneumonia, Adult (DC) Add. Discharge Instructions: Take antibiotics as prescribed until they are gone. Increase fluids at home, rest as needed. Follow-up with your primary doctor in 5 days for reevaluation. Return to the emergency department should your symptoms change in any way concerning to you. All discharge instructions reviewed with patient and/or family. Voiced understanding. Scripts Azithromycin (Azithromycin) 500 Mg Tablet 500 MG PO DAILY for 5 Days, #6 TAB 1000 mg PO on first day, then 500mg PO daily after that Prov: FABY DA SILVA DO 09/09/22 FABY DA SILVA DO September 09, 2022 10:51
[2022-09-09] MEDS ORDERED: AZIT500T9 PO (11:55)
[2022-09-09] MEDS ORDERED: RT-ALBUINH INH (11:58)
[2022-09-09 12:00] VITALS: BP 143/75
--- NOTE | 2022-09-09 12:06 | Diagnostic Imaging Report ---
INDICATION: Shortness of breath. COMPARISON: None available. TECHNIQUE: Three radiographs of the chest dated 09/09/2022. FINDINGS: The cardiac silhouette is within normal limits in size. No significant pulmonary vascular congestion. Focal infiltrate is noted within the peripheral left midlung with associated mild left basilar interstitial opacities. No significant pleural effusion. No pneumothorax. No acute osseous abnormality. IMPRESSION: Focal opacities within the left midlung extending into the left lung base. Findings most likely relate to pneumonia. Radiographic followup 10 to 14 days after appropriate therapy is recommended for further evaluation. Mass lesion or other infiltrate is not totally excluded. Dictated by: Dictated on workstation # [id number]
== END 2022-09-09 12:05 | disposition home or self-care (01) ==
LOC: EDUNIT# 10:31 → ER 10:37
DX: O99.512 Diseases of the respiratory system complicating pregnancy, second trimester (principal); J18.9 Pneumonia, unspecified organism; O99.332 Smoking (tobacco) complicating pregnancy, second trimester; F17.200 Nicotine dependence, unspecified, uncomplicated; Z88.2 Allergy status to sulfonamides; Z88.0 Allergy status to penicillin; Z3A.27 27 weeks gestation of pregnancy
CPT/HCPCS: 71046

== ENCOUNTER → 2022-10-05 | Outpatient (CLI) | payer MEDICAID ==
[~2022-10-05] MED LIST changes: +AZIT500T9 PO; +RT-ALBUINH INH
== END ==
LOC: LABNPT 15:35
PROVIDERS: ATTEND Nurse Practitioner Women's Health
DX: O13.9 Gestational [pregnancy-induced] hypertension without significant proteinuria, unspecified trimester (principal); Z3A.00 Weeks of gestation of pregnancy not specified
CPT/HCPCS: 82570; 84156

== ENCOUNTER → 2022-11-03 | Outpatient (CLI) | payer MEDICAID | LOC: LABNPT 16:20 | PROVIDERS: ATTEND Nurse Practitioner Women's Health | DX: O13.9 Gestational [pregnancy-induced] hypertension without significant proteinuria, unspecified trimester (principal); Z3A.00 Weeks of gestation of pregnancy not specified | CPT/HCPCS: 82570; 84156 ==

== ENCOUNTER 2022-11-10 05:30 | Outpatient (CLI) | payer MEDICAID ==
[~2022-11-10] VITALS: Ht 167.7 cm; Wt 186.4 kg
[2022-11-10] MEDS ORDERED: LABE200T10 PO (09:31)
[2022-11-10] MEDS ORDERED: FAMO40TA72 PO (09:32)
== END 2022-11-10 09:55 ==
LOC: PREOP 05:30
PROVIDERS: ATTEND Obstetrics & Gynecology
DX: Z01.818 Encounter for other preprocedural examination (principal)

== ENCOUNTER 2022-11-17 05:29 | Inpatient (IN) | payer MEDICAID ==
[~2022-11-17] VITALS: Ht 167.6 cm; Wt 185.0 kg
[2022-11-17] VITALS (11 sets, daily range): BP systolic 111–130; BP diastolic 57–76
[~2022-11-17 05:29] MED LIST changes: +FAMO40TA72 PO; +LABE200T10 PO
--- OUTSIDE RECORDS SUMMARY | 2022-11-17 05:33 | XMS REPORT ---
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 confirmed 834 28847 Problem Sore throat J02.9 confirmed 12586175 3 Problem Dysuria R30.0 confirmed 45671010 Problem follow-up Z39.2 confirmed 507589197 Problem Irregular menses N92.6 confirmed 386 111789 Problem care in third trimester Z34.93 conf irmed 941754554 Problem Dysthymic disorder F34.1 confirmed 7 6725189 Problem Non-seasonal allergic rhinitis due to pollen J30.1 confirmed 88481473 Problem Body mass index (BMI) of 50-59.9 in adult Z68.43 confirmed 806175908 Problem Morbid (severe) obesity due to excess calories E66.01 confirmed 315200353 ALLERGIES Allergen (clinical drug ingredient) Drug/Non Drug Allergy do cumented on EMR Reaction Allergy Type Onset Date Status Substance with sulfonamide structure and antibacterial mechanism of action (substance) Sulfa Antibiotics hives Drug Allergy Active ENCOUNTERS from 1988 to 2022-11-12 Encounter Location Date Provider Diagnosis [facility] [address] [facility] [id number] [place], [place] [id number] Nov, KASHMIR SPENCER Cough R05 IMMUNIZATIONS Vaccine Route Administration Date Status FLUARIX QUAD (3 AND UP) 2016 IM Intramuscular May 21, 2017 Ad ministered PRIVATE FLULAVAL QUAD 0.5ML (6 MO AND UP) 2018 IM Intramuscular Feb 04, 2018 Administered PRIVATE FLU 22-23 (FLULAVAL) AGE 6MO AND UP IM Intramuscular Feb 11, 2022 Administered 1st Booster MODERNA Bivalent, COVID-19, 0.5mL IM Intramuscular O ct 2021 Administered COVID-19 Moderna (history) Unknown August 16, 2020 Admin istered COVID-19 Moderna (history) Unknown July 18, 2020 Admin istered PRIVATE TDAP (BOOSTRIX) IM Intramuscular May 28, 2021 Adminis tered SOCIAL HISTORY Sex Assigned At : Social History Observation Description Sex Assigned At Unknown Alcohol Screen (Audit-C) Question Answer Notes Did you have a drink containing alcohol in the past year? Ye s Points 2 Interpretation Negative How often did you have 6 or more drinks on one occasio n in the past year? Less than monthly (1 point) How many drinks did you have on a typica l day when you were drinking in the past year? 1 or 2 (0 points) How often did you have a drink containing alcohol in t he past year? Monthly or less (1 point) Cessation Question Answer Notes Date Tobacco Cessation Provided: 02/27/2019 Sexual History Question Answer Notes Had sex in the past 12 months (vaginal, oral, or anal)? Yes Have you ever had a Sexually transmitted disease? Yes Prevention strategies discussed: Other with Men only Use protection? Yes Other? No Syphilis? No Herpes? No GC? No Chlamydia? Yes How often? Most of the time PHQ2 Question Answer Notes In the last 2 weeks, how often have you had little interest or pleasure in doing things? Not at all In the last 2 weeks, how often have you been feeling down, depressed, or hopeless? Not at all Total PHQ2 Score 0 Tobacco use other than smoking: Question Answer Notes Are you an other tobacco user? 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) HISTORY Type Description Date Medical History seasonal allergies Medical History Anxiety disorder Medical History depression Medical History hyperinsulinemia Medical History dyslipidemia Surgical History section x 3 Surgical History Tonsillectomy & adenoidectomy Surgical History myringotomy with ventilating tube Hospitalization History Surgery(s)/Childbirth(s) only Goals Section No Information Health Concerns No Information MEDICAL EQUIPMENT No Information MENTAL STATUS No Information FUNCTIONAL STATUS No Information ASSESSMENTS Encounter Date Diagnosis Assessment Notes Treatment Notes Treatm ent Clinical Notes Nov, Cough (ICD-10 - R05) PLAN OF TREATMENT Medication Medication Name Sig Start Date Stop Date Erythromycin 2 % 1 cm application to both eye s Externally 4 times a day for 7 days Sep, Insurance Providers Payer Name Payer Address Payer Phone Insured Name Patient Relati onship to Insured Coverage Start Date Coverage End Date Subscriber Number Group [place] spain [employer] [address] [facility] [phone] Sonia [place] Self - patient is the insured [id number] COVID19 HRSA Uninsured T [employer] Fund [facility] A ttention CARES Act Provider Relief Fund [address] [address] [facility] [phone] Sonia [place] Self - patient is the insured 2019 2019 [id number] MEDICATIONS ADMINISTERED Medication Instructions Date of Administration Dosage DEPO PROVERA (150 MG/ML) Jan, 150 mg DEPO PROVERA (150 MG/ML) Oct, 150 mg DEPO PROVERA (150 MG/ML) Jul, 150 mg DEPO PROVERA (150 MG/ML) Apr, 150 mg DEPO PROVERA (150 MG/ML) Nov, 150 mg DEPO PROVERA (150 MG/ML) August, 150 mg DEPO PROVERA (150 MG/ML) Apr, 150 mg DEPO PROVERA (150 MG/ML) Jul, 150 mg
--- OUTSIDE RECORDS SUMMARY | 2022-11-17 05:33 | XMS REPORT ---
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 confirmed 834 44201 Problem Sore throat J02.9 confirmed 38808771 3 Problem Dysuria R30.0 confirmed 22266251 Problem follow-up Z39.2 confirmed 469319558 Problem Irregular menses N92.6 confirmed 386 072420 Problem care in third trimester Z34.93 conf irmed 414479489 Problem Dysthymic disorder F34.1 confirmed 7 5353986 Problem Non-seasonal allergic rhinitis due to pollen J30.1 confirmed 70119009 Problem Body mass index (BMI) of 50-59.9 in adult Z68.43 confirmed 447388402 Problem Morbid (severe) obesity due to excess calories E66.01 confirmed 114843718 ALLERGIES Allergen (clinical drug ingredient) Drug/Non Drug Allergy do cumented on EMR Reaction Allergy Type Onset Date Status Substance with sulfonamide structure and antibacterial mechanism of action (substance) Sulfa Antibiotics hives Drug Allergy Active ENCOUNTERS from 1988 to 2022-10-19 Encounter Location Date Provider Diagnosis [facility] [address] [facility] [id number] [place] [address] Oct, KASHMIR SPENCER Encounter for pregna ncy test, result unknown Z32.00 IMMUNIZATIONS Vaccine Route Administration Date Status 1st Booster MODERNA Bivalent, COVID-19, 0.5mL IM Intramuscular O ct 2021 Administered PRIVATE FLU 22-23 (FLULAVAL) AGE 6MO AND UP IM Intramuscular Feb 11, 2022 Administered COVID-19 Moderna (history) Unknown August 16, 2020 Admin istered COVID-19 Moderna (history) Unknown July 18, 2020 Admin istered PRIVATE FLULAVAL QUAD 0.5ML (6 MO AND UP) 2018 IM Intramuscular Feb 04, 2018 Administered FLUARIX QUAD (3 AND UP) 2016 IM Intramuscular May 21, 2017 Ad ministered PRIVATE TDAP (BOOSTRIX) IM Intramuscular May 28, [...] Information RESULTS No Results REASON FOR VISIT test (walk-in) MEDICAL (GENERAL) HISTORY Type Description Date Medical History [...] Notes Treatment Notes Treatm ent Clinical Notes Oct, Encounter for test, result unk nown (ICD-10 - Z32.00) PLAN OF TREATMENT Medication Medication Name Sig Start Date Stop Date Erythromycin 2 % 1 cm application to both eye s Externally 4 times a day for 7 days Sep, Insurance Providers Payer Name Payer Address Payer Phone Insured Name Patient Relati onship to Insured Coverage Start Date Coverage End Date Subscriber Number Group Nu mber [employer] [address] [facility] [phone] Sonia [place] Self - patient is the insured [id number] COVID19 HRSA Uninsured [employer] Fund [facility] Group A ttention CARES Act Provider Relief Fund [address] [address] [facility] [phone] Sonia [place] Self - patient is the insured 2019 2019 [id number] MEDICATIONS ADMINISTERED Medication Instructions Date of Administration Dosage DEPO PROVERA (150 MG/ML) Apr, 150 mg DEPO PROVERA (150 MG/ML) Jul, 150 mg DEPO PROVERA (150 MG/ML) Oct, 150 mg DEPO PROVERA (150 MG/ML) Jan, 150 mg DEPO PROVERA (150 MG/ML) Apr, 150 mg DEPO PROVERA (150 MG/ML) Jul, 150 mg DEPO PROVERA (150 MG/ML) Nov, 150 mg DEPO PROVERA (150 MG/ML) August, 150 mg
[2022-11-17] MEDS ORDERED: metroNIDAZOLE 500MG/100ML IVPB 100 ML IV ONE (05:45)
[2022-11-17] MEDS ORDERED: ceFAZolin INJECTION 2,000 MG in NS (IVPB) 50 ML 50 ML IV ONE (05:45)
[2022-11-17] MEDS ORDERED: CATHETER FLUSH 10 ML SYR IV PRN (06:00)
[2022-11-17] MEDS ORDERED: LACTATED RINGERS 1,000 ML IV PRN ×2 (06:00)
[2022-11-17] MEDS ORDERED: FAMOTIDINE 20MG/2ML IV (PEPCID) IV ONE (06:00)
[2022-11-17] MEDS ORDERED: METOCLOPRAMIDE INJ 10 MG/2 ML (REGLAN) IV ONE (06:00)
[2022-11-17] MEDS ORDERED: CITRIC ACID/SODIUM CITRATE ORAL SOLN 30 ML PO ONE (06:00)
[2022-11-17 06:39] LABS: BASOPHILS % (AUTO) 0 % (0-10); EOSINOPHILS # (AUTO) 0.1 10^3/uL (0.0-0.3); EOSINOPHILS % (AUTO) 1 % (0-10); HEMATOCRIT 39 % (35-52); HEMOGLOBIN 12.9 g/dL (11.5-16.0); LYMPHOCYTES # (AUTO) 2.2 10^3/uL (1.0-4.0); LYMPHOCYTES % (AUTO) 20 % (12-44); MEAN CORPUSCULAR HEMOGLOBIN 28 pg (25-34); MEAN CORPUSCULAR HGB CONC 33 g/dL (32-36); MEAN CORPUSCULAR VOLUME 86 fL (80-99); MEAN PLATELET VOLUME 11.1 fL (9.0-12.2); MONOCYTES # (AUTO) 0.5 10^3/uL (0.0-1.0); MONOCYTES % (AUTO) 5 % (0-12); NEUTROPHILS # (AUTO) 8.4 10^3/uL (1.8-7.8); NEUTROPHILS % (AUTO) 74 % (42-75); PLATELET COUNT 232 10^3/uL (130-400); WHITE BLOOD COUNT 11.4 10^3/uL (4.3-11.0)
[2022-11-17] MEDS ORDERED: fentaNYL INJ 100 MCG/2 ML AMP ONE (07:03)
[2022-11-17] MEDS ORDERED: OXYTOCIN PRE-MIX DRIP 1,000 ML IV ONE (07:03)
--- NOTE | 2022-11-17 07:17 | History & Physical-OB ---
OB - Chief Complaint & HPI Date/Time Date of Admission: Date of Admission: Nov 17, 2022 at 05:29 Time Seen by a Provider: 07:00 Chief Complaint/History OB-Reason for Admission/Chief: Section Hx : 4 Hx Para: 3 Expected Date of Delivery: Nov 08, 2023 Gestational Age in Weeks: 37 Gestational Age in Days: 0 Indication for : desires repeat Other reason for admission: This 31-year-old presents to labor and delivery at 37 weeks EGA for repeat low-transverse section. This is significant for PIH, morbid obesity and 2 previous sections. Admission Nurse Assessment Rev: Yes Other A+ GBS neg RI Hep B/C neg HIV neg Allergies and Home Medications Allergies Coded Allergies: sulfamethoxazole (Verified Allergy, Unknown, 11/10/22) trimethoprim (Verified Allergy, Unknown, 11/10/22) Uncoded Allergies: SUBSTANCE WITH SULFONAMIDE STRUCTUR (Allergy, Unknown, hives, 11/17/22) Patient Home Medication List Home Medication List Reviewed: Yes Acetaminophen (Acetaminophen) 500 Mg Tablet, 1,000 MG PO Q8HR Prescribed by: ЕКАТЕРИНА ANDERS on 07/11/211918 Last Action: Reviewed Famotidine (Pepcid) 40 Mg Tablet, 40 MG PO DAILY, (Reported) Entered as Reported by: Ean Petersen on 11/10/22 0932 Last Action: Reviewed Labetalol HCl (Labetalol HCl) 200 Mg Tablet, 200 MG PO BID, (Reported) Entered as Reported by: Ean Petersen on 11/10/22 0931 Last Action: Reviewed Vit W-Ca,Fe,FA(<1 mg) ( Vitamins) 1 Each Tablet, 1 EACH PO PRN, (Reported) Entered as Reported by: EAN CANELA on 07/04/21 1357 Last Action: Reviewed Discontinued Medications Albuterol Sulfate (Ventolin Hfa) 1 Puff Puff, 2 PUFF INH Q4H Discontinued Reason: No Longer Taking Prescribed by: FABY DA SILVA MD on 09/09/22 1158 Azithromycin (Azithromycin) 500 Mg Tablet, 500 MG PO DAILY Discontinued Reason: No Longer Taking Prescribed by: FABY DA SILVA MD on 09/09/22 1155 Docusate Sodium (Docusate Sodium) 100 Mg Capsule, 100 MG PO BID Discontinued Reason: No Longer Taking Prescribed by: ЕКАТЕРИНА ANDERS on 07/11/211918 Ferrous Sulfate (Ferosul) 325 Mg Tablet, 325 MG PO DAILY@0700 Discontinued Reason: No Longer Taking Prescribed by: ЕКАТЕРИНА ANDERS on 07/11/211918 Ibuprofen (Ibu) 600 Mg Tablet, 600 MG PO Q6HR Discontinued Reason: No Longer Taking Prescribed by: ЕКАТЕРИНА ANDERS on 07/11/211918 Miconazole Nitrate (Lotrimin AF) 90 Gm Powder, 1 GM TOP BID PRN for RASH Discontinued Reason: No Longer Taking Prescribed by: KAUR BEATTY on 07/14/21 1108 Last Action: Discontinued OB - History Hx of Present Care: Yes Ultrasounds: Normal mid trimester US Obstetrical Complications: Gestational Hypertension Medical Complications: Other (morbid obesity ) Information Induced Hypertension: Yes Maternal Gestational Diabetes: No Hemorrhage: No Obstetrical History Hx : 4 Hx Para: 3 Hx # Term Pregnancies: 3 Number of Living Children: 3 Hx Termination: No Hx Multiple Gestation: No Hx Stillbirth: No Hx Complication: No Hx Induced Hypertens: No Hx Maternal Gestational Diabet: No Delivery History Hx Dystocia: Yes Hx Large For Gestational Age I: No Hx Small for Gestational Age I: No Hx Section: Yes (x3) Hx Vaginal Delivery Post C-Sec: No Hx Blood Disorders: No Adverse Rxn to Tranfusion: No Patient Past Medical History HTN Social History/Family History Alcohol Use: Denies Use Smoking Cessation: Never smoker 2nd Hand Smoke Exposure: Yes Immunizations Influenza Vaccine Up-to-Date: Yes; Up-to-Date First/Initial COVID19 Vaccine: JUNE 2020 Second COVID19 Vaccination: JULY 26 Third COVID19 Vaccination Date: JUNE 2021 Hepatitis A: Yes Hepatitis B: Yes Tetanus Booster (TDap): Unknown OB - Admission Exam Physical Exam HEENT: NCAT Heart: Rhythm Normal Lungs: Clear Abdomen: Gravid Extremities: Normal Cervical Dilatation: None Heart Rate: 130's Accelerations: Accelerations Present Decelerations: No Decelerations Short Term Variability: Present Sports Complex Attendant Variability: Average (6-25) Contractions on Admission: None Labs Laboratory Tests Test 11/17/22 06:20 Range/Units White Blood Count 11.4 H 4.3-11.0 10^3/uL Red Blood Count 4.55 3.80-5.11 10^6/uL Hemoglobin 12.9 11.5-16.0 g/dL Hematocrit 39 35-52 % Mean Corpuscular Volume 86 80-99 fL Mean Corpuscular Hemoglobin 28 25-34 pg Mean Corpuscular Hemoglobin Concent 33 32-36 g/dL Red Cell Distribution Width 14.6 H 10.0-14.5 % Platelet Count 232 130-400 10^3/uL Mean Platelet Volume 11.1 9.0-12.2 fL Immature Granulocyte % (Auto) 1 % Neutrophils (%) (Auto) 74 42-75 % Lymphocytes (%) (Auto) 20 12-44 % Monocytes (%) (Auto) 5 0-12 % Eosinophils (%) (Auto) 1 0-10 % Basophils (%) (Auto) 0 0-10 % Neutrophils # (Auto) 8.4 H 1.8-7.8 10^3/uL Lymphocytes # (Auto) 2.2 1.0-4.0 10^3/uL Monocytes # (Auto) 0.5 0.0-1.0 10^3/uL Eosinophils # (Auto) 0.1 0.0-0.3 10^3/uL Basophils # (Auto) 0.0 0.0-0.1 10^3/uL Immature Granulocyte # (Auto) 0.1 0.0-0.1 10^3/uL Syphilis Total Antibody Negative Negative OB - Assessment/Plan/Diagnosis Assessment Assessment: section Admission Dx IUP at 37 weeks PIH morbid obesity Admission Status: Inpatient Order (span 2 midnights) Reason for Inpatient Admission: IUP @ 37 PIH Morbid obesity repeat LTCS Plan Plan: Section Copy Copies To 1: ORLANDO WELLS VICTORIA A DO Nov 17, 2022 07:17
[2022-11-17] MEDS ORDERED: PHENYLEPHRINE 100 MCG/ML 10 ML (ANESTHESIA) SYR ONE (08:12)
--- NOTE | 2022-11-17 09:23 | Cesarean Section Operative ---
Procedure Procedure Note Pre-operative Diagnosis: Sonia sadler a (31 /Para 4 / 3, Gestational Age (wks)37 with PIH previous LTCSx3 Post-operative Diagnosis: same + adhesions and liveborn female Procedure: [] low transverse section Physician: XENA CAMERON Vac Press Operator: Urszula Farrar RN, RAKAN GonzálesS Estimated blood loss: 500 mL Disposition: Stable to PACU counts correct x3 Findings: Liveborn female infant, Apgars8/8, weight 6 pounds 2 ounces, intact plac enta, 3vc, normal appearing uterus, tubes, and ovaries. Indications:Sonia sotelo (31 /Para 4 / 3,Gestational Age (wks)37 presenting for Repeat low-transverse section history of PIH with this . Procedure Details: The patient was seen in pre-op and the procedure was discussed with the patient in full, including the risks, benefits, and alternatives. All questions were answered. The patient was taken to the operating room and a time out was performed, verifying patient and procedure. After spinal anesthesia was placed by our anesthesia colleagues, the patient was placed in the dorsal supine with leftward tilt for uterine displacement.~ Her abdomen was then taped to expose the lower aspect of the abdomen and lift up the pannus, prepped and draped in the typical sterile fashion.Anesthesia was confirmed using an Allis clamp.A Pfannenstiel skin incision was made using a scalpel and carried down using a bovie cautery through to the underlying fascia. There was a significant amount of scar tissue. The fascia was nicked and we were into the abdominal cavity with small bowel extruding into the incision. The bowel was inspected carefully and confirmed that there was no injury. We continued to extend the fascia with the bovie taking particular care to protect the bowel underneath. The tissue was then stretched laterally and confirming lack of intraperitoneal adhesions, a large Gage retractor was placed and the lower uterine segment was visualized. The bowel was still protruding so two wet laps were inserted to retract the bowel and both were tagged to the drape. A scalpel was utilized to make a low transverse uterine incision and extended using bandage scissors. An amniotomy was performed with an Allis clamp with return of clear fluid. The infant's head was deep in the pelvis and was grasped and brought up to as close to the incision as we could get. Then using a blade of a Johnson forcep the head was brought to the incision opening. The second blade was placed on the head and with Fundal pressure the head was attempted to be delivered, but the incision was too tight so it was extended on the left. Gentle traction on the forcep was applied with fundal pressure from my resident care assistant and was delivered without further difficulty. Mouth and nares were suctioned with bulb suction. After 60 seconds the umbilical cord was clamped and cut, the was handed off to the pediatric staff. A sample of cord blood was then obtained. The placenta was delivered intact via uterine massage. The uterus was left inside the abdomen and cleared of all clots and debris. Two Allis clamps were used to grasp the corners of the uterine incision. The incisions was closed using 0 Vicryl in a running locked fashion. A second imbricated layer was placed using 0 Vicryl in a running fashion was placed for excellent hemostasis as well. Again the hysterotomy site was examined and hemostasis was observed. The bilateral tubes and ovaries appeared normal. A final check of the uterine incision showed it to be hemostatic. The peritoneum, muscle and fascia were closed with looped PDS x2 in a running fashion starting from lateral to medial with each suture being tied off in midline. The subcutaneous space was closed with 2-0 Vicryl with a running stitch. The skin was then closed using samuel. A pressure dressing was applied and Wound care will be placing a wound vac later today. All sponge, lap and needle counts were correct at the end of the procedure per nursing. Vitals - Labs Vital Signs - I&O Vital Signs Date Time Temp Pulse Resp B/P (MAP) Pulse Ox O2 Delivery O2 Flow Rate FiO2 11/17/22 07:00 36.0 74 18 99 Room Air Labs Laboratory Tests 11/17/22 06:20: White Blood Count 11.4H, Red Blood Count 4.55, Hemoglobin 12.9, Hematocrit 39, Mean Corpuscular Volume 86, Mean Corpuscular Hemoglobin 28, Mean Corpuscular Hemoglobin Concent 33, Red Cell Distribution Width 14.6H, Platelet Count 232, Mean Platelet Volume 11.1, Immature Granulocyte % (Auto) 1, Neutrophils (%) (Auto) 74, Lymphocytes (%) (Auto) 20, Monocytes (%) (Auto) 5, Eosinophils (%) (Auto) 1, Basophils (%) (Auto) 0, Neutrophils # (Auto) 8.4H, Lymphocytes # (Auto) 2.2, Monocytes # (Auto) 0.5, Eosinophils # (Auto) 0.1, Basophils # (Auto) 0.0, Immature Granulocyte # (Auto) 0.1, Syphilis Total Antibody Negative XENA CAMERON DO Nov 17, 2022 09:23
[2022-11-17] MEDS ORDERED: OXYTOCIN PRE-MIX DRIP 500 ML IV SCH (09:30)
[2022-11-17] MEDS ORDERED: NALOXONE 0.4 MG/ML 1 ML (NARCAN) VIAL IV PRN (09:30)
[2022-11-17] MEDS ORDERED: HYDROcodone/APAP 7.5 MG/325 MG (LORTAB, LORCET PLUS) TABLET PO PRN (09:30)
[2022-11-17] MEDS ORDERED: MEASLES,MUMPS,RUBELLA 1 EA INJ SC SCH (09:30)
[2022-11-17] MEDS ORDERED: TETANUS,DIPTH,PERTUSS P/F (BOOSTRIX) 0.5 ML VIAL IM SCH (09:30)
[2022-11-17] MEDS ORDERED: BISACODYL 10 MG SUPPOSITORY PR PRN (09:30)
[2022-11-17] MEDS ORDERED: morphine INJ 4 MG/ML 1 ML (VIAL/SYRINGE) IV PRN (09:30)
[2022-11-17] MEDS ORDERED: ONDANSETRON 4 MG/2 ML (SDV) Z0FRAN IVP PRN (09:30)
[2022-11-17] MEDS: KETOROLAC 30 MG/ML VIAL IV SCH ×3 (10:14→22:29)
[2022-11-17] MEDS: METOCLOPRAMIDE 10 MG (REGLAN) TAB PO SCH ×2 (12:19→18:14)
--- NOTE | 2022-11-17 15:16 | Wound Care Assessment ---
Wound Care Assessment Date Seen by Provider: Nov 17, 2022 Time Seen by Provider: 15:11 Chief Complaint Morbid obesity post-C section (repeat) HPI This pleasant 31 year old patient presented for repeat scheduled today. She is massively obese with large pannus and is high risk for surgical dehiscence. She is not a smoker, nor is she diabetic. I was consulted for consideration of incisional wound vac therapy (Prevena) to improve granulation and hasten wound healing for prevention of dihescence and infection. I do think Sonia is a great candidate for this and we will move forward at this time. Smoking Status: Former Smoker Recreational Drug Use: No Alcohol Use: Denies Use Review of Systems General: Other (Obesity) Exam Vital Signs Date Time Temp Pulse Resp B/P (MAP) Pulse Ox O2 Delivery O2 Flow Rate FiO2 11/17/22 12:20 36.3 72 18 117/63 (81) 99 Room Air Capillary Refill : Less Than 3 SecondsLess Than 3 Seconds General Appearance: no apparent distress, obese HEENT: other (normal hearing) Neck: full range of motion Cardiovascular: no edema Respiratory: no respiratory distress, no accessory muscle use Extremities: normal range of motion Neurologic/Psychiatric: alert, normal mood/affect, oriented x 3 Skin Problem Location: torso Skin Character: drainage, linear 17 cm horizontal incision with samuel intact. Sanguinous drainage noted on exam. Results Laboratory Tests 11/17/22 06:20: White Blood Count 11.4H, Red Blood Count 4.55, Hemoglobin 12.9, Hematocrit 39, Mean Corpuscular Volume 86, Mean Corpuscular Hemoglobin 28, Mean Corpuscular Hemoglobin Concent 33, Red Cell Distribution Width 14.6H, Platelet Count 232, Mean Platelet Volume 11.1, Immature Granulocyte % (Auto) 1, Neutrophils (%) (Auto) 74, Lymphocytes (%) (Auto) 20, Monocytes (%) (Auto) 5, Eosinophils (%) (Auto) 1, Basophils (%) (Auto) 0, Neutrophils # (Auto) 8.4H, Lymphocytes # (Auto) 2.2, Monocytes # (Auto) 0.5, Eosinophils # (Auto) 0.1, Basophils # (Auto) 0.0, Immature Granulocyte # (Auto) 0.1, Syphilis Total Antibody Negative Assessment/Plan/Dx Assessment: 1. Repeat in morbidly obese patient Plan: 1. Prevena wound vac for placement in hospital. RN will provide counseling upon d/c home with plan for follow up at post-surgical visit. We will monitor while she is admitted. 2. F/U as outpatient should this plan fail and dehiscence develop WILLIAMS DAMON MD Nov 17, 2022 15:16
[2022-11-17] MEDS: CATHETER FLUSH 10 ML SYR IV SCH (15:47)
[2022-11-17] MEDS ORDERED: NS IV 500 ML 500 ML ONE (18:28)
[2022-11-17] MEDS ORDERED: NS IV 500 ML 500 ML IV ONE (20:00)
[2022-11-17] MEDS: HYDROcodone/APAP 7.5 MG/325 MG (LORTAB, LORCET PLUS) TABLET PO PRN (21:21)
[2022-11-17] MEDS: DOCUSATE SODIUM 100 MG CAPSULE PO SCH (21:21)
[2022-11-18] MEDS: METOCLOPRAMIDE 10 MG (REGLAN) TAB PO SCH ×4 (00:15→18:11)
[2022-11-18 04:35] VITALS: BP 115/55
[2022-11-18] MEDS: KETOROLAC 30 MG/ML VIAL IV SCH (04:38)
[2022-11-18] MEDS ORDERED: MILK OF MAGNESIA 400 MG/5 ML 30 ML UDC PO PRN (05:00)
[2022-11-18 06:36] LABS: BASOPHILS % (AUTO) 0 % (0-10); EOSINOPHILS # (AUTO) 0.2 10^3/uL (0.0-0.3); EOSINOPHILS % (AUTO) 2 % (0-10); HEMATOCRIT 34 % (35-52); HEMOGLOBIN 11.1 g/dL (11.5-16.0); LYMPHOCYTES % (AUTO) 18 % (12-44); MEAN CORPUSCULAR HEMOGLOBIN 29 pg (25-34); MEAN CORPUSCULAR HGB CONC 33 g/dL (32-36); MEAN CORPUSCULAR VOLUME 88 fL (80-99); MEAN PLATELET VOLUME 10.6 fL (9.0-12.2); MONOCYTES # (AUTO) 0.6 10^3/uL (0.0-1.0); MONOCYTES % (AUTO) 5 % (0-12); NEUTROPHILS # (AUTO) 8.7 10^3/uL (1.8-7.8); NEUTROPHILS % (AUTO) 75 % (42-75); PLATELET COUNT 180 10^3/uL (130-400); WHITE BLOOD COUNT 11.5 10^3/uL (4.3-11.0)
--- NOTE | 2022-11-18 08:41 | Postpartum Progress Note ---
Post Op Post-operative Day #1 Subjective: Patient is without complaints. Ambulating, Maldonado still in place with clear yellow urine. Removed this morning. Tolerating a regular diet without nausea or vomiting. Normal lochia. Pain is well controlled with oral pain medications. Passing flatus. Formula feeding. [] Objective: Vital signs stable afebrile Physical Exam: General - Alert and oriented, no apparent distress Heart regular rate and rhythm Lungs clear to auscultation bilaterally Breast symmetrical no erythema or edema or engorgement Abdomen - Soft, appropriately tender to palpation, non-distended, fundus firm at umbilicus Incision - clean, dry and intact; no erythema or induration, no drainage Lochia minimal Extremities - no edemaOr erythema. SCDs on Assessment: [] post-operative day # 1 status post Repeat low-transverse section PIHBPs stable Recovering well, hemodynamically stable Plan: Routine post-operative care. Encourage breast feeding. Encourage ambulation. VTE prophylaxis: SCDs, Lovenox Ferrous sulfate supplementation. Plan for discharge [] Vitals - Labs Vital Signs - I&O Vital Signs Date Time Temp Pulse Resp B/P (MAP) Pulse Ox O2 Delivery O2 Flow Rate FiO2 11/18/22 04:35 36.5 83 18 115/55 (75) 96 Room Air 11/17/22 20:32 36.7 82 18 129/76 (93) 96 Room Air 11/17/22 16:26 36.8 11/17/22 16:00 78 18 124/57 (79) Room Air 11/17/22 12:20 36.3 72 18 117/63 (81) 99 Room Air 11/17/22 10:54 36.2 66 18 123/65 (84) 99 Room Air 11/17/22 10:00 Room Air 11/17/22 10:00 36.1 16 114/73 (87) 99 Room Air 11/17/22 09:45 Room Air 11/17/22 09:45 36.0 16 111/68 (82) 99 Room Air 11/17/22 09:30 36.0 16 123/73 (90) 99 Room Air 11/17/22 09:30 Room Air 11/17/22 09:15 Room Air 11/17/22 09:15 36.2 16 114/63 (80) 99 Room Air I & O 11/18/22 07:00 Intake Total 1150 ml Output Total 475 ml Balance 675 ml Labs Laboratory Tests 11/18/22 05:38: White Blood Count 11.5H, Red Blood Count 3.88, Hemoglobin 11.1L, Hematocrit 34L, Mean Corpuscular Volume 88, Mean Corpuscular Hemoglobin 29, Mean Corpuscular He moglobin Concent 33, Red Cell Distribution Width 14.9H, Platelet Count 180, Mean Platelet Volume 10.6, Immature Granulocyte % (Auto) 1, Neutrophils (%) (Auto) 75, Lymphocytes (%) (Auto) 18, Monocytes (%) (Auto) 5, Eosinophils (%) (Auto) 2, Basophils (%) (Auto) 0, Neutrophils # (Auto) 8.7H, Lymphocytes # (Auto) 2.0, Monocytes # (Auto) 0.6, Eosinophils # (Auto) 0.2, Basophils # (Auto) 0.0, Immature Granulocyte # (Auto) 0.1 XENA CAMERON DO Nov 18, 2022 08:41
[2022-11-18 09:35] VITALS: BP 132/64
[2022-11-18] MEDS: HYDROcodone/APAP 7.5 MG/325 MG (LORTAB, LORCET PLUS) TABLET PO PRN ×2 (09:37→15:26)
[2022-11-18] MEDS: DOCUSATE SODIUM 100 MG CAPSULE PO SCH ×2 (09:37→21:28)
[2022-11-18] MEDS: IBUPROFEN 800 MG (MOTRIN) TAB PO PRN ×2 (09:40→21:28)
[2022-11-18] MEDS: ENOXAPARIN 40 MG/0.4 ML (LOVENOX) SYR SC SCH (09:42)
[2022-11-18] MEDS: CATHETER FLUSH 10 ML SYR IV SCH ×2 (09:42→09:43)
[2022-11-18 12:40] VITALS: BP 125/72
--- NOTE | 2022-11-18 14:07 | Anesthesia-Regional Post-Op ---
Regional Patient Condition Mental Status: Alert, Oriented x3 Circulation: Same as Pre-Op Headache: Absent Sensation: Full Recovery Motor Block: Absent Post Op Complications Complications None Follow Up Care/Instructions Patient Instructions None needed. Anesthesia/Patient Condition Patient is doing well, no complaints, stable vital signs, no apparent adverse anesthesia problems. No complications reported per nursing. KENNA CHIN CRNA Nov 18, 2022 14:07
[2022-11-18 18:10] VITALS: BP 137/90
[2022-11-19 00:25] VITALS: BP 125/65
[2022-11-19] MEDS: METOCLOPRAMIDE 10 MG (REGLAN) TAB PO SCH ×5 (00:28→23:44)
[2022-11-19] MEDS: IBUPROFEN 800 MG (MOTRIN) TAB PO PRN ×2 (05:37→18:36)
[2022-11-19 05:42] VITALS: BP 124/58
--- NOTE | 2022-11-19 08:22 | Postpartum Progress Note ---
Post Op Post-operative Day #2 Subjective: Patient is without complaints. Ambulating, voiding after hood removed. Tolerating a regular diet without nausea or vomiting. Normal lochia. Pain is well controlled with oral pain medications. Passing flatus. Formula feeding. Objective: [] Physical Exam: General - Alert and oriented, no apparent distress Breast symmetrical no erythema edema or engorgement Abdomen - Soft, appropriately tender to palpation, non-distended, fundus firm at umbilicus Incision - clean, dry and intact; no erythema or induration, no drainage Wound VAC applied(Placed postoperatively prophylactically). Lochia minimal Extremities - no edema, negative Anthony's bilaterally Assessment: [] post-operative day # 2, status post Repeat low-transverse section. Recovering well, hemodynamically stable Plan: Routine post-operative care. Encourage breast feeding. Encourage ambulation. VTE prophylaxis: SCDs, Lovenox. Ferrous sulfate supplementation. Plan for discharge [] Vitals - Labs Vital Signs - I&O Vital Signs Date Time Temp Pulse Resp B/P (MAP) Pulse Ox O2 Delivery O2 Flow Rate FiO2 11/19/22 05:42 36.4 71 18 124/58 (80) 99 Room Air 11/19/22 00:25 36.6 80 20 125/65 (85) 98 Room Air 11/18/22 18:10 36.4 90 18 137/90 (106) 97 Room Air 11/18/22 12:40 36.4 69 18 125/72 (89) 97 Room Air 11/18/22 09:35 36.9 82 18 132/64 (86) 98 Room Air I & O 11/19/22 07:00 Intake Total 2000 ml Output Total 2540 ml Balance -540 ml XENA CAMERON DO Nov 19, 2022 08:22
[2022-11-19] MEDS ORDERED: IBUP-1780 PO (08:27)
[2022-11-19] MEDS ORDERED: DOCU100C37 PO (08:27)
[2022-11-19] MEDS ORDERED: HYDR-34 PO (08:27)
--- NOTE | 2022-11-19 08:30 | Discharge Summary ---
Discharge Summary Hospital Course Problems Reviewed?: Yes Hospital Course Date of Admission: Nov 17, 2022 at 05:29 Admission Diagnosis : Family Physician/Provider: Anderson Solis DO Date of Discharge: 11/19/22 Discharge Diagnosis:Status post repeat low-transverse section postop day #3 Hospital Course: Patient was admitted for repeat low-transverse section. She delivered a liveborn . Her was significant for -induced hypertension. Her blood pressures were all stable. Her course was uneventful and she was discharged home with a wound VAC (that was placed prophylactically due to body habitus), pain medications and instructions. Labs and Pending Lab Test: Home Meds Active Docusate Sodium 100 Mg Capsule 100 Mg PO BID Take 1 tablet twice a day Ibuprofen 800 Mg Tablet 800 Mg PO Q8H PRN Take 1 tablet every 8 hours as needed for pain Acetaminophen 500 Mg Tablet 1,000 Mg PO Q8HR Reported Pepcid (Famotidine) 40 Mg Tablet 40 Mg PO DAILY Labetalol HCl 200 Mg Tablet 200 Mg PO BID Vitamins ( Vit W-Ca,Fe,FA(<1 mg)) 1 Each Tablet 1 Each PO PRN Activity: Activity as Tolerated Driving Instructions: No Driving for 1 Week NO SMOKING: NO SMOKING Nothing Inside Vagina: No Douching, No [place], No Tampons Discharge Diet: Cardiac Diet Symptoms to Report to : Pain Increased, Constipation(Persistant), Fever Over 101 Degrees F, Pain/Pressure in Chest, Heart Beat Irreg/Pounding, Vaginal Bleeding Increase, Lightheadedness, Vaginal Discharge Foul, Questions/Concerns, Wt Gain Consecutive Days, Nausea/Vomiting, Shortness of Breath For Any Problems or Questions: Contact Your Physician Infection Signs and Symptoms: Increased Redness, Foul Odor of Wound, Increased Drainage, Skin Itchy or Has a Rash, Increased Swelling, Temperature Above 101 F Operative Area Clean and Dry: Do Not Remove Bandage, Keep Incision Clean/Dry Stitches/[place]/Dermabond: Care of Dora Bathing Instructions: Shower Discharge Physical Examination Allergies: Coded Allergies: sulfamethoxazole (Verified Allergy, Unknown, 11/10/22) trimethoprim (Verified Allergy, Unknown, 11/10/22) Uncoded Allergies: SUBSTANCE WITH SULFONAMIDE STRUCTUR (Allergy, Unknown, hives, 11/17/22) Vitals & I&Os Vital Signs Date Time Temp Pulse Resp B/P (MAP) Pulse Ox O2 Delivery O2 Flow Rate FiO2 11/19/22 05:42 36.4 71 18 124/58 (80) 99 Room Air Discharge Summary Date of Admission Nov 17, 2022 at 05:29 Date of Discharge Admission Diagnosis IUP @ 37wk previous CS x3 Supervisory-Addendum Brief Verification & Attestation Participated in pt care: history, MDM, physical Personally performed: exam, history, MDM, supervision of care Care discussed with: Medical Student Procedures: n/a Results interpretation: Verified all documentation I personally saw and examined this patient XENA CAMERON DO Nov 19, 2022 08:30
[2022-11-19] MEDS: DOCUSATE SODIUM 100 MG CAPSULE PO SCH ×2 (08:43→23:44)
[2022-11-19] MEDS: ENOXAPARIN 40 MG/0.4 ML (LOVENOX) SYR SC SCH (08:43)
[2022-11-19 12:00] VITALS: BP 118/79
[2022-11-19] MEDS: HYDROcodone/APAP 7.5 MG/325 MG (LORTAB, LORCET PLUS) TABLET PO PRN (15:08)
[2022-11-19 18:00] VITALS: BP 130/76
[2022-11-19 19:20] VITALS: BP 139/64
[2022-11-20] MEDS: IBUPROFEN 800 MG (MOTRIN) TAB PO PRN (02:00)
[2022-11-20 02:20] VITALS: BP 129/67
[2022-11-20] MEDS: METOCLOPRAMIDE 10 MG (REGLAN) TAB PO SCH (05:33)
--- NOTE | 2022-11-20 08:28 | Postpartum Progress Note ---
Post Op Post-operative Day #3 Subjective: Patient is without complaints. Ambulating, voiding after hood removed. Tolerating a regular diet without nausea or vomiting. Normal lochia. Pain is well controlled with oral pain medications. Passing flatus. Formula feeding. [] Objective: Vital signs stable afebrile Physical Exam: General - Alert and oriented, no apparent distress Breast symmetrical no erythema or edema or engorgement Abdomen - Soft, appropriately tender to palpation, non-distended, fundus firm at umbilicus Incision - clean, dry and intact; no erythema or induration, no drainage Wound VAC in place Extremities - No edema erythema or tenderness bilaterally Assessment: [] post-operative day # 3, status post Repeat low-transverse section. Recovering well, hemodynamically stable Plan: Routine post-operative care. Encourage breast feeding. Encourage ambulation. VTE prophylaxis: SCDs. Ferrous sulfate supplementation. Plan for discharge Today Vitals - Labs Vital Signs - I&O Vital Signs Date Time Temp Pulse Resp B/P (MAP) Pulse Ox O2 Delivery O2 Flow Rate FiO2 11/20/22 02:20 36.5 76 18 129/67 (87) 99 Room Air 11/19/22 19:20 36.7 89 18 139/64 (89) 98 Room Air 11/19/22 18:00 36.7 88 20 130/76 (94) 99 Room Air 11/19/22 15:08 37.2 11/19/22 12:00 37.2 93 20 118/79 (92) 98 Room Air I & O 11/20/22 07:00 Intake Total 1000 ml Balance 1000 ml XENA CAMERON DO Nov 20, 2022 08:28
[2022-11-20] MEDS: HYDROcodone/APAP 7.5 MG/325 MG (LORTAB, LORCET PLUS) TABLET PO PRN (08:31)
[2022-11-20] MEDS: DOCUSATE SODIUM 100 MG CAPSULE PO SCH (08:31)
[2022-11-20] MEDS: ENOXAPARIN 40 MG/0.4 ML (LOVENOX) SYR SC SCH (08:31)
== END 2022-11-20 10:48 | disposition home or self-care (01) | DRG 788 ==
LOC: LDRP 05:29
PROVIDERS: ADMIT Obstetrics & Gynecology; ATTEND Obstetrics & Gynecology
PROC: 10D00Z1 Extraction of Products of Conception, Low, Open Approach (ICD-10-PCS; principal; 2022-11-17 07:51)
DX: O34.211 Maternal care for low transverse scar from previous cesarean delivery (principal); Z3A.37 37 weeks gestation of pregnancy; Z37.0 Single live birth; O13.4 Gestational [pregnancy-induced] hypertension without significant proteinuria, complicating childbirth; O99.214 Obesity complicating childbirth; E66.01 Morbid (severe) obesity due to excess calories
CPT/HCPCS: 36415; 85025; 86780; 86850; 86900; 86901; 94664